=== PATIENT | male | born 1995 | race Caucasian/White ===

== ENCOUNTER 2016-08-30 12:02 | Emergency (ER) | payer OTHER ==
[2016-08-30 12:08] VITALS: PULSE 92; RESP 16; TEMP 98.2
[2016-08-30] MEDS ORDERED: ONDANSETRON 4 MG/2 ML VIAL ONE (12:22)
[2016-08-30] MEDS ORDERED: NS 1,000 ML IV ONE ×3 (12:30→14:16)
[2016-08-30] MEDS ORDERED: ONDANSETRON 4 MG/2 ML VIAL IVP ONE ×2 (12:30→14:16)
--- NOTE | 2016-08-30 12:59 | EDPHY ---
[id number] 20-year-old male 1 day history vomiting and diarrhea. He has the abdominal cramping centered around the umbilicus. [place], [place] on a snowboard trip. He also has headache and some dizziness. No urinary symptoms. No fever. No chest discomfort or trouble breathing ROS Constitutional. no fever/chills, no weakness Eyes. no problems with vision ENT. no sore throat, no nasal drainage Cardiovascular. no chest pain Respiratory. no shortness of breath, no cough Abdominal. Abdominal pain with vomiting and diarrhea . no problems urinating MS. no calf pain/swelling, no neck/back pain, no joint pain Skin. no rash Lymph. no swollen glands Neuro. Headache Past Medical/Surgical History: Healthy Social History: Single, daily smoker, no alcohol Smoking Status: Current some day smoker Physical Exam: General Appearance: Alert well-developed male mild distress vital signs are stable Eyes: Pupils equal and round no pallor or injection. ENT, Mouth: Mucous membranes are moist. Respiratory: There are no retractions, lungs are clear to auscultation. Cardiovascular: Regular rate and rhythm. Gastrointestinal: Abdomen is soft with mild tenderness in the periumbilical area; no masses. Normal bowel sounds Neurological: Awake and alert, sensory and motor exams grossly normal. Skin: Warm and dry, no rashes. Musculoskeletal: Neck is supple nontender. Extremities symmetrical, full range of motion. Psychiatric: Patient is oriented X 3, there is no agitation. Constitutional: Initial Vital Signs Temperature (C) 36.8 C 08/30/16 12:05 Heart Rate 92 08/30/16 12:05 Respiratory Rate 16 08/30/16 12:05 Blood Pressure 133/82 H 08/30/16 12:05 O2 Sat (%) 98 08/30/16 12:05 O2 Delivery Mode Room Air Allergies/Adverse Reactions: No Known Allergies Allergy (Unverified 08/30/16 12:05) Home Medications: Medication Instructions Recorded Ondansetron Odt [Zofran Odt] 4 mg PO Q4PRN PRN #4 tab 08/30/16 Medical Decision Making Procedures: IV normal saline. Morphine for cramping and for constipating effect. Zofran for nausea. 2 L of saline ED Course/Re-evaluation: After 2 L no urge to urinate. Re-evaluation at 2:15 p.m. patient still feels slightly nauseated but no vomiting. His abdominal pain is resolved. Patient is given another L of saline and another dose of Zofran Patient is taking oral ice chips. There has been no further vomiting. Patient is stable. The patient and I discussed treatment plan including criteria for return and importance of follow-up further evaluation. He expresses understanding and agreement Differential Diagnosis: I considered dehydration, electrolyte abnormality. This is likely a vomiting and diarrhea type gastroenteritis rather than appendicitis or diverticulitis. - Data Points Laboratory Results: Laboratory Results 08/30/16 12:25 08/30/16 12:25 Sodium 144 mEq/L (134-144) Potassium 3.8 mEq/L (3.5-5.2) Chloride 103 mEq/L (97-110) Carbon Dioxide 26 mEq/l (22-31) Anion Gap 15 mEq/L (8-16) BUN 14 mg/dL (7-23) Creatinine 0.8 mg/dL (0.7-1.3) Estimated GFR > 60 Glucose 89 mg/dL (70-100) Calcium 9.1 mg/dL (8.5-10.4) Medications Given: Discontinued Medications Sodium Chloride (Ns) 1,000 mls @ 0 mls/hr IV ONCE ONE PRN Reason: Wide Open Stop: 08/30/16 12:31 Last Admin: 08/30/16 12:30 Dose: 1,000 mls Sodium Chloride (Ns) 1,000 mls @ 0 mls/hr IV ONCE ONE PRN Reason: Wide Open Stop: 08/30/16 12:57 Last Admin: 08/30/16 13:07 Dose: 1,000 mls Sodium Chloride (Ns) 1,000 mls @ 0 mls/hr IV ONCE ONE PRN Reason: Wide Open Stop: 08/30/16 14:17 Last Admin: 08/30/16 14:17 Dose: 1,000 mls Morphine Sulfate (Morphine) 6 mg IVP EDNOW ONE Stop: 08/30/16 12:57 Last Admin: 08/30/16 13:07 Dose: 6 mg Ondansetron HCl (Zofran) 4 mg IVP EDNOW ONE Stop: 08/30/16 12:31 Last Admin: 08/30/16 12:30 Dose: 4 mg Ondansetron HCl (Zofran) 4 mg IVP EDNOW ONE Stop: 08/30/16 14:17 Last Admin: 08/30/16 14:18 Dose: 4 mg Departure - Departure Disposition: Home, Routine, Self-Care Clinical Impression: Vomiting Qualifiers: Vomiting type: unspecified Vomiting Intractability: non-intractable Nausea presence: without nausea Qualifier Code: (R11.11) Vomiting without nausea Diarrhea Qualifiers: Diarrhea type: unspecified type Qualifier Code: (R19.7) Diarrhea, unspecified Condition: Good Instructions: Acute Nausea and Vomiting (ED), Loperamide (By mouth), Acute Diarrhea (ED) Additional Instructions: Frequent, small sips fluids. Gradual diet advancement. Zofran as needed for nausea vomiting. Loperamide (Immodium) as needed for diarrhea. Return for worsening symptoms. Recheck in 2 days if not improving Referrals: OUT OF STATE,. [Primary Care Provider] - As per Instructions Kim Ziegler MD [Medical Doctor] - As per Instructions Prescriptions: Ondansetron Odt [Zofran Odt] 4 mg PO Q4PRN PRN #4 tab PRN Reason: Nausea/Vomiting, Use 1st
[2016-08-30 13:30] LABS: ANION GAP 15 mEq/L (8-16); CALCIUM 9.1 mg/dL (8.5-10.4); CARBON DIOXIDE 26 mEq/l (22-31); CHLORIDE 103 mEq/L (97-110); CREATININE 0.8 mg/dL (0.7-1.3); GLOMERULAR FILTRATION RATE > 60; GLUCOSE 89 mg/dL (70-100); POTASSIUM 3.8 mEq/L (3.5-5.2); SODIUM 144 mEq/L (134-144)
[2016-08-30 15:10] VITALS: BP 128/68; O2SAT 96
== END 2016-08-30 15:09 | disposition home or self-care (01) ==
DX: R19.7 Diarrhea, unspecified (principal); R11.10 Vomiting, unspecified; F17.200 Nicotine dependence, unspecified, uncomplicated
CPT/HCPCS: 96374; J2405